=== PATIENT | male | born 1975 | race Caucasian/White ===

== ENCOUNTER 2019-02-28 08:40 | Emergency (ER) | payer SELFPAY ==
--- NOTE | 2019-02-28 08:55 | ED Physician Documentation ---
General Adult - HISTORIAN Historian: patient - HPI Stated Complaint: headache, elevated blood pressure Chief Complaint: General Adult Additional Information: Patient presents to ED with a 24 hour history of headache and elevated blood pressure. Patient states his blood pressure was elevated yesterday. This morning when he woke up his blood pressure was 160/116 and he had an associated headache (occipital), 12/28. He took his Amlodipine 10mg and Aspirin 650mg. He presented to the ED with a blood pressure of 140/90 with residual headache 04/29. He requests and EKG because his PCP told him he has hardening of the heart and instructed him if he had a headache and elevated blood pressure he needed to go to the ER and have an EKG. Patient denies having shortness of breath, chest pain, nausea/vomiting, visual changes, dizziness or syncope. Onset: hours (24) Timing: still present Severity: mild - ROS CONST: denies: weakness EYES/ENT: denies: problems with vision CVS/RESP: denies: chest pain, shortness of breath GI/: denies: vomiting, nausea MS/SKIN/LYMPH: none NEURO/PSYCH: headache. denies: dizziness - PAST HX Past History: hypertension Other History: none Surgeries/Procedures: none Allergies/Adverse Reactions: Allergies Allergy/AdvReac Type Severity Reaction Status Date / Time Penicillins Allergy Intermediate Verified 02/28/19 08:55 Sulfa (Sulfonamide Allergy Intermediate Verified 02/28/19 08:55 Antibiotics) Home Medications: Ambulatory Orders Medication Instructions Recorded Aspirin [Ailyn] 325 mg PO DAILY PRN 02/28/19 Hydralazine HCl 25 mg PO Q8 PRN #90 tablet 02/28/19 amLODIPine BESYLATE [Norvasc] 10 mg PO DAILY 02/28/19 - SOCIAL HX Smoking History: cigarettes, greater than 1 pack/day Alcohol Use: none Drug Use: none - FAMILY HX Family History: No - VITAL SIGNS Vital Signs: Vital Signs Temp Pulse Resp BP Pulse Ox 157/99 02/04/15 21:57 - REVIEWED ASSESSMENTS Nursing Assessment Reviewed: Yes Vitals Reviewed: Yes Progress - Progress Progress: 0945 Patient states he is feeling much better. Blood pressure is 132/84. Hea dache is gone. General Adult Physical Exam - PHYSICAL EXAM GENERAL APPEARANCE: no distress EENT: DAV[place] NECK: supple RESPIRATORY: no resp distress, chest non-tender, breath sounds normal CVS: reg rate & rhythm, heart sounds normal ABDOMEN: soft, normal bowel sounds BACK: normal inspection, no CVA tenderness SKIN: warm/dry, normal color EXTREMITIES: non-tender, no edema NEURO: oriented X3, motor nml, mood/affect nml Discharge Clincal Impression: Accelerated hypertension Prescriptions: Hydralazine HCl 25 mg PO Q8 PRN #90 tablet PRN Reason: elevated blood pressure Referrals: Calli Leblanc FNP [REFERRING] - 2 Days Additional Instructions: 1. Take daily blood pressure medication at previously prescribed. Ideally take it at the same time every day. 2. Take Hydralazine 25mg every 8 hours as needed for blood pressure greater than 160 systolic (top number) or greater than 90 diastolic (bottom number) 3. Smoking cessation strongly encouraged 4. Weight reduction and daily exercise regimen would also be beneficial 5. A low sodium 2 gram daily diet would also help maintain a proper blood pressure. 6. Follow up with PCP within 1 week. Discuss referral to Cardiology with Stress test and echocardiogram to address concerns 7. Return to the ER for new or worsening symptoms Condition: Stable Disposition: 01 HOME, SELF-CARE Decision to Admit: NO Date of Decison to Admit: 02/28/19 Decision Time: 09:46
[2019-02-28] MEDS: hydrALAZINE HCL 25 MG TABLET PO ONE (09:12)
[2019-02-28 10:02] VITALS: BP 141/78
== END 2019-02-28 09:53 | disposition home or self-care (01) ==
LOC: ED 08:40
DX: R03.0 Elevated blood-pressure reading, without diagnosis of hypertension (principal); F17.210 Nicotine dependence, cigarettes, uncomplicated
CPT/HCPCS: 99283; 99284